=== PATIENT | male | born 1975 | race Caucasian/White ===

== ENCOUNTER 2017-01-11 05:03 | Day surgery (SDC) | payer BC, OTHER ==
[2017-01-11] MEDS ORDERED: Dextrose 5%-Lactated Ringers 1,000 ML IV SCH (06:30)
[2017-01-11] MEDS ORDERED: Propofol 200 MG/20 ML SDV ONE (06:50)
[2017-01-11] MEDS ORDERED: Midazolam 1 MG/ML 2 ML SDV ONE (06:50)
[2017-01-11] MEDS ORDERED: fentaNYL 100 MCG/2 ML SDV ONE (06:50)
[2017-01-11] MEDS ORDERED: Glycopyrrolate 0.2 MG/ML 2 ML SYRINGE IVPUSH ONE (07:15)
[2017-01-11 08:36] VITALS: BP 109/82
--- NOTE | 2017-01-12 09:51 | OR ---
DATE OF PROCEDURE: 01/11/2017 PREOPERATIVE DIAGNOSIS: Dyspepsia. POSTOPERATIVE DIAGNOSES: 1. Mild distal esophagitis with possible Betancur's esophagus. 2. Mild antral gastritis. PROCEDURE: Esophagogastroduodenoscopy with: 1. Antral biopsies for CLOtest. 2. Biopsies of the esophagogastric junction for histologic evaluation. ANESTHESIA: IV sedation. INDICATION FOR PROCEDURE: This is a 41-year-old male presenting with some ongoing dyspepsia, complaining of some discomfort and some nausea referable to the epigastric area. He is presently on omeprazole 40 mg a day and has been so for about the last month and states his discomfort and symptoms have improved while on that medication. Plan is to proceed with an upper GI endoscopy with biopsies as indicated. Potential risks including bleeding and perforation were discussed and the patient wishes to proceed. DETAILS OF PROCEDURE: The patient was taken to the operating room and placed in the left lateral decubitus position. IV sedation was administered, after which the upper GI endoscope was passed orally through the length of the esophagus and into stomach with retroflexion view of the fundus, and thereafter through the pyloric channel and into the proximal duodenum. Findings included a normal appearing hypopharynx, larynx, upper esophageal sphincter, and esophageal body. At the EG junction, there was a very small hiatal hernia. There was some upward extension of the gastroesophageal junction, mucosal lining above the gastric fold and two tiny islands of columnar type mucosa separate from the main gastric mucosa. This is being suggestive of some possible Betancur's esophagus. There is no stricturing or plaquing, and the amount of inflammation present was minimal. Within the stomach there is no retained food or fluid. The patient did have some very mild redness in the antrum; otherwise, the pyloric channel and proximal duodenum were unremarkable. At this point, biopsies were taken from the antrum and sent for CLOtest for H. pylori. Multiple biopsies were then obtained from esophagogastric junction, sent for histologic evaluation. Minimal bleeding of the biopsy sites was seen and the procedure concluded. The patient was taken to the recovery room in satisfactory condition. Plan will be to have the patient continue the present medications. If the CLOtest is positive, we would get him set up with a 2-week course of some antibiotics for the H. pylori, and if Betancur's esophagus is identified, he should be enrolled in a 2-year follow- up endoscopic regimen. Otherwise, continue the present medications, i.e., Prilosec 40 mg a day, and see Dr. Campbell in the clinic in about two weeks. Ector Park MD /[id number]
== END 2017-01-11 08:49 | disposition home or self-care (01) ==
LOC: JP.SDS 05:03
PROVIDERS: ATTEND Surgery
DX: K31.89 Other diseases of stomach and duodenum (principal); K44.9 Diaphragmatic hernia without obstruction or gangrene; F32.9 Major depressive disorder, single episode, unspecified; Z88.8 Allergy status to other drugs, medicaments and biological substances
CPT/HCPCS: 43239; 87081; J2250; J2704; J3010; J7042

== ENCOUNTER 2017-01-11 20:39 | Emergency (ER) | payer BC ==
[2017-01-11 21:29] VITALS: BP 161/99
[2017-01-11] MEDS ORDERED: Sodium Chloride 0.9% 1,000 ML IV SCH (22:15)
--- NOTE | 2017-01-11 22:16 | EDM.PDOC ---
ED HPI GENERAL MEDICAL PROBLEM - General Chief Complaint: Abdominal Pain Stated Complaint: STOMACH PAIN Time Seen by Provider: 01/11/17 21:52 Source of Information: Reports: Patient, Family () History Limitations: Reports: No Limitations - History of Present Illness INITIAL COMMENTS - FREE TEXT/NARRATIVE: abdominal pain; this is a 41 year old male presents to ER for evaluation of abdominal pain. reports had EGD this morning by Dr. Park, told was gastritis, he went home this afternoon, had pain in abdomen all afternoon. felt like an intense burning pain. tried to eat rice, which made the pain worse. Water caused pain, had a bowel movement which didn't change the pain. had a acid, bile like taste in mouth. decided to come to ER, then vomited and pain is almost gone prior to arrival in ER. Onset: Gradual Location: Reports: Abdomen Quality: Reports: Ache, Burning Severity: Mild Improves with: Reports: None Worsens with: Reports: Eating Context: Reports: Other (abdominal pain) Associated Symptoms: Reports: Loss of Appetite, Nausea/Vomiting abdominal Pain Score (Numeric/FACES): 7 - Related Data Allergies Allergy/AdvReac Type Severity Reaction Status Date / Time pseudoephedrine Allergy Other Verified 01/12/17 10:16 [From Actifed] triprolidine [From Actifed] Allergy Other Verified 01/12/17 10:16 Home Meds: Home Meds RX: Omeprazole 40 mg PO DAILY 01/09/17 [History] RX: Sertraline [Zoloft] 150 mg PO DAILY 01/09/17 [History] Ascorbate Calcium [Vitamin C] 500 mg PO DAILY 01/11/17 [History] Multivitamin [Men's Multi-Vitamin] 1 tab PO DAILY 01/11/17 [History] Past Medical History HEENT History: Reports: Impaired Vision, Otitis Media, Sinusitis Gastrointestinal History: Reports: GERD Genitourinary History: Reports: Renal Calculus Musculoskeletal History: Reports: Arthritis, Back Pain, Chronic, Fracture, Other (See Below) Other Musculoskeletal History: history of broken vertebrate in neck Psychiatric History: Reports: Anxiety - Infectious Disease History Infectious Disease History: Reports: Chicken Pox - Past Surgical History HEENT Surgical History: Reports: Adenoidectomy, Tonsillectomy GI Surgical History: Reports: None, EGD, Other (See Below) Other GI Surgeries/Procedures: EGD 01/11/17 Musculoskeletal Surgical History: Reports: None Social & Family History - Family History Family Medical History: Noncontributory - Tobacco Use Smoking Status *Q: Never Smoker Years of Tobacco use: 20 Packs/Tins Daily: 0.1 Used Tobacco, but Quit: No Second Hand Smoke Exposure: No - Caffeine Use Caffeine Use: Reports: Coffee, Soda - Alcohol Use Days Per Week of Alcohol Use: 4 Number of Drinks Per Day: 2 Total Drinks Per Week: 8 - Recreational Drug Use Recreational Drug Use: No - Living Situation & Occupation Living situation: Reports: ED ROS GENERAL - Review of Systems Review Of Systems: See Below Constitutional: Reports: Decreased Appetite HEENT: Reports: No Symptoms Respiratory: Reports: No Symptoms Cardiovascular: Reports: No Symptoms Endocrine: Reports: No Symptoms GI/Abdominal: Reports: Abdominal Pain, Decreased Appetite, Vomiting, Other (EGD today) : Reports: No Symptoms Musculoskeletal: Reports: No Symptoms Skin: Reports: No Symptoms Neurological: Reports: No Symptoms Psychiatric: Reports: No Symptoms Hematologic/Lymphatic: Reports: No Symptoms Immunologic: Reports: No Symptoms ED EXAM, GI/ABD - Physical Exam Exam: See Below Exam Limited By: No Limitations General Appearance: Alert, WD/WN, No Apparent Distress Eyes: Bilateral: Normal Appearance, EOMI Ears: Normal External Exam, Normal Canal, Hearing Grossly Normal, Normal TMs Nose: Normal Inspection, Normal Mucosa, No Blood Throat/Mouth: Normal Inspection, Normal Lips, Normal Teeth, Normal Gums, Normal Oropharynx, Normal Voice, No Airway Compromise Head: Atraumatic, Normocephalic Neck: Normal Inspection, Supple, Non-Tender, Full Range of Motion Respiratory/Chest: No Respiratory Distress, Lungs Clear, Normal Breath Sounds, No Accessory Muscle Use, Chest Non-Tender Cardiovascular: Normal Peripheral Pulses, Regular Rate, Rhythm, No Edema, No Gallop, No JVD, No Murmur, No Rub GI/Abdominal: Normal Bowel Sounds, Soft, No Organomegaly, No Distention, No Abnormal Bruit, No Mass, Tenderness (epigastric and right upper quadrant) (Male) Exam: Deferred Rectal (Males) Exam: Deferred Extremities: Normal Inspection, Normal Range of Motion, Non-Tender, No Pedal Edema, Normal Capillary Refill Neurological: Alert, Oriented, Normal Cognition, Normal Gait, No Motor/Sensory Deficits Psychiatric: Normal Affect, Normal Mood Skin Exam: Warm, Dry, Intact, Normal Color, No Rash Lymphatic: No Adenopathy Course - Vital Signs Last Recorded V/S: Last Vital Signs Temp 36.4 C 01/11/17 21:28 Pulse 67 01/11/17 21:28 Resp 18 01/11/17 21:28 BP 161/99 H 01/11/17 21:28 Pulse Ox 98 01/11/17 21:28 - Orders/Labs/Meds Labs: Laboratory Tests 01/11/17 01/11/17 01/11/17 Range/Units 22:17 22:17 23:02 WBC 13.8 H (4.5-11.0) K/uL RBC 5.42 (4.30-5.90) M/uL Hgb 15.9 H (12.0-15.0) g/dL Hct 44.1 (40.0-54.0) % MCV 81 (80-98) fL MCH 29 (27-31) pg MCHC 36 (32-36) % Plt Count 259 (150-400) K/uL Neut % (Auto) 74 H (36-66) % Lymph % (Auto) 17 L (24-44) % [place] % (Auto) 8 H (2-6) % Eos % (Auto) 1 L (2-4) % Baso % (Auto) 0 (0-1) % Sodium 139 L (140-148) mmol/L Potassium 3.6 (3.6-5.2) mmol/L Chloride 101 (100-108) mmol/L Carbon Dioxide 31 (21-32) mmol/L Anion Gap 10.6 (5.0-14.0) mmol/L BUN 11 (7-18) mg/dL Creatinine 1.0 (0.8-1.3) mg/dL Est Cr Clr Drug Dosing 94.05 mL/min Estimated GFR (MDRD) > 60 (>60) Glucose 153 H (74-106) mg/dL Calcium 9.2 (8.5-10.1) mg/dL Total Bilirubin 0.8 (0.2-1.0) mg/dL AST 20 (15-37) U/L ALT 29 (12-78) U/L Alkaline Phosphatase 75 (46-116) U/L Total Protein 7.4 (6.4-8.2) g/dL Albumin 3.6 (3.4-5.0) g/dL Globulin 3.8 H (2.3-3.5) g/dL Albumin/Globulin Ratio 1.0 L (1.2-2.2) Amylase 45 (25-115) U/L Lipase 90 (73-393) U/L Urine Color Yellow Urine Appearance Cloudy Urine pH 9.0 H (4.5-8.0) Ur Specific [place] 1.020 (1.008-1.030) Urine Protein Negative (NEGATIVE) mg/dL Urine Glucose (UA) Normal (NEGATIVE) mg/dL Urine Ketones Negative (NEGATIVE) mg/dL Urine Occult Blood Negative (NEGATIVE) Urine Nitrite Negative (NEGAITVE) Urine Bilirubin Negative (NEGATIVE) Urine Urobilinogen Normal (NORMAL) mg/dL Ur Leukocyte Esterase Negative (NEGATIVE) Urine RBC 0-5 (0-5) Urine WBC 0-5 (0-5) Ur Epithelial Cells Rare Amorphous Sediment Many Urine Bacteria Rare Urine Mucus Few Meds: Medications Discontinued Medications Generic Name Dose Route Start Last Admin Trade Name Emmanuelle PRN Reason Stop Dose Admin Hydromorphone HCl 1 mg 01/11/17 23:44 01/11/17 23:53 Dilaudid IVPUSH 01/11/17 23:45 1 mg ONETIME ONE Administration Sodium Chloride 1,000 mls @ 500 mls/hr 01/11/17 22:15 01/11/17 22:54 Normal Saline IV 500 mls/hr ASDIRECTED RUSTY Administration Ondansetron HCl 4 mg 01/11/17 23:44 01/11/17 23:51 Zofran IVPUSH 01/11/17 23:45 4 mg ONETIME ONE Administration Pantoprazole Sodium 40 mg 01/11/17 22:25 01/11/17 22:55 Protonix Iv IVPUSH 01/11/17 22:26 40 mg ONETIME ONE Administration - Re-Assessments/Exams Free Text/Narrative Re-Assessment/Exam: 01/11/17 22:21 labs; CBC, CMP, AMYLASE, LIPASE XRAY; ABDOMEN PELVIS WITHOUT CONTRAST MEDS; IV NORMAL SALINE 1 LITER 01/11/17 23:[address]; acute Yaritza consulted with Dr. De Oliveira -will see in clinic in am -come to clinic at 0900 -medicate for pain -keep NPO after midnight -pt may have surgical procedure on 01/12/17 discussed with Mr. and Mrs. Dahl agree with plan of care. given copy of CT abdomen-pelvis report 01/11/17 23:45 Mr. Dahl drank juice, water and ice chips, now in acute pain plan; dilaudid 1mg IV, Zofran 4mg IV. Departure - Departure Time of Disposition: 00:05 Disposition: Home, Self-Care 01 Condition: Good Clinical Impression: Cholecystitis - Discharge Information Instructions: Cholecystitis, [id number] Referrals: Darwin Campbell MD [Primary Care Provider] - Forms: ED Department Discharge Care Plan Goals: 01/11/17 23:[address]; acute Yaritza consulted with Dr. De Oliveira -will see in clinic in am -come to clinic at 0900 -medicate for pain -keep NPO after midnight -pt may have surgical procedure on 01/12/17 discussed with and Mrs. Dahl agree with plan of care. given copy of CT abdomen-pelvis report - Problem List & Annotations (1) Cholecystitis SNOMED Code(s): 44789226 Code(s): K81.9 - CHOLECYSTITIS, UNSPECIFIED Status: Acute Priority: High - Problem List Review Problem List Initiated/Reviewed/Updated: Yes - Assessment/Plan Plan: 01/11/17 23:[address]; acute Yaritza consulted with Dr. De Oliveira -will see in clinic in am -come to clinic at 0900 -medicate for pain -keep NPO after midnight, nothing to eat or drink after midnight, may take medicine with sip of water. no aspirin or motrin or aleve products. -pt may have surgical procedure on 01/12/17 discussed with Mr. and Mrs. Dahl agree with plan of care. given copy of CT abdomen-pelvis report
[2017-01-11] MEDS ORDERED: Pantoprazole 40 MG Vial IVPUSH ONE (22:25)
[2017-01-11] MEDS ORDERED: HYDROmorphone 1 MG/ML Syringe IVPUSH ONE (23:44)
[2017-01-11] MEDS ORDERED: Ondansetron 4 MG/2 ML SDV IVPUSH ONE (23:44)
== END 2017-01-12 00:50 | disposition home or self-care (01) ==
LOC: JP.ED 20:39
PROC: 0DB48ZX Excision of Esophagogastric Junction, Via Natural or Artificial Opening Endoscopic, Diagnostic (ICD-10-PCS; principal; 2017-01-11)
PROC: 0DB68ZX Excision of Stomach, Via Natural or Artificial Opening Endoscopic, Diagnostic (ICD-10-PCS; 2017-01-11)
DX: K81.9 Cholecystitis, unspecified (principal); K21.9 Gastro-esophageal reflux disease without esophagitis; F41.9 Anxiety disorder, unspecified; Z87.442 Personal history of urinary calculi; Z98.890 Other specified postprocedural states; Z79.899 Other long term (current) drug therapy; Z88.8 Allergy status to other drugs, medicaments and biological substances; K31.89 Other diseases of stomach and duodenum; K44.9 Diaphragmatic hernia without obstruction or gangrene; F32.9 Major depressive disorder, single episode, unspecified
CPT/HCPCS: 36415; 43239; 74176; 80053; 81001; 82150; 83690; 85025; 87081; 88305; 88312; 96361; 96374; 96375; 99285; C9113; J1170; J2250; J2405; J2704; J3010; J7040; J7042

== ENCOUNTER 2017-01-12 09:47 | Day surgery (SDC) | payer BC ==
[2017-01-12] MEDS ORDERED: Neostigmine Methylsulfate 1 MG/ML 5 ML Syringe ONE (10:16)
[2017-01-12] MEDS ORDERED: fentaNYL 250 MCG/5 ML SDV ONE (10:16)
[2017-01-12] MEDS ORDERED: Succinylcholine/Normal Saline 200 MG/10 ML Syringe ONE (10:16)
[2017-01-12] MEDS ORDERED: Dexamethasone 4 MG/ML SDV ONE (10:16)
[2017-01-12] MEDS ORDERED: Rocuronium 50 MG/5 ML Vial ONE (10:16)
[2017-01-12] MEDS ORDERED: Ondansetron 4 MG/2 ML SDV ONE (10:16)
[2017-01-12] MEDS ORDERED: Propofol 200 MG/20 ML SDV ONE (10:16)
[2017-01-12] MEDS ORDERED: Lidocaine 1% with EPINEPHrine 1:100,000 50 ML MDV ONE (10:28)
[2017-01-12] MEDS ORDERED: Bupivacaine 0.5% 50 ML MDV ONE (10:28)
[2017-01-12] MEDS ORDERED: Ketorolac 60 MG/2 ML SDV ONE ×2 (11:09→11:43)
[2017-01-12] MEDS ORDERED: ceFAZolin 2 GM in Sodium Chloride 0.9% 50 ML IV ONE (11:30)
[2017-01-12] MEDS ORDERED: metroNIDAZOLE/Normal Saline 500 MG in Premix Bag 1 BAG IV ONE (11:30)
[2017-01-12] MEDS ORDERED: Zolpidem 5 MG Tab PO PRN (11:42)
[2017-01-12] MEDS ORDERED: diphenhydrAMINE 50 MG/ML SDV IVPUSH PRN (11:42)
[2017-01-12] MEDS ORDERED: Promethazine 25 MG/ML SDV IM PRN (11:42)
[2017-01-12] MEDS ORDERED: Benzocaine/Cetylpyridinium/Menthol Lozenge MUCMEM PRN (11:42)
[2017-01-12] MEDS: Sodium Chloride 0.9% 1,000 ML IV SCH ×2 (11:50→18:37)
[2017-01-12] MEDS: Acetaminophen/HYDROcodone 325-10 MG Tab PO PRN (15:26)
[2017-01-13] MEDS: Acetaminophen/HYDROcodone 325-10 MG Tab PO PRN ×3 (00:01→11:05)
[2017-01-13] MEDS ORDERED: Lidocaine 2% Jelly 10 ML Urojet MUCMEM ONE (01:00)
[2017-01-13 06:24] VITALS: BP 111/68
--- NOTE | 2017-01-13 12:04 | PN ---
DATE OF SERVICE: 01/13/2017 SUBJECTIVE: The patient is doing very well today. Pain is well controlled. No nausea, vomiting, shortness of breath, or chest pain. He is passing gas. He has a low-grade fever. OBJECTIVE: VITAL SIGNS: 118/68, pulse 78, respirations 18, 94% on room air. CARDIOVASCULAR: Regular rhythm and rate. RESPIRATORY: Lungs clear to auscultation bilaterally. ABDOMEN: Bowel sounds positive. Incisions healing well. LABORATORY DATA: Normal hemoglobin. Total bilirubin of 1.1. ASSESSMENT AND PLAN: Status post laparoscopic cholecystectomy. PLAN: The patient will be discharged today. Please see discharge summary for further details. Abram De Oliveira MD /[id number]
--- NOTE | 2017-01-13 12:10 | DISCH ---
DISCHARGE DIAGNOSIS: Status post laparoscopic cholecystectomy. HOSPITAL COURSE: This is a pleasant 41-year-old male who developed right upper quadrant abdominal pain requiring laparoscopic cholecystectomy. On postop day #1, the patient's pain was well controlled. He was passing gas. He has no nausea, vomiting, shortness of breath, or chest pain. He had a low-grade fever, which was consistent with atelectasis. FOLLOWUP: With Surgery in 7 to 14 days. ACTIVITY: No lifting greater than 30 pounds x30 days. DISCHARGE MEDICATIONS: Please see MAR, but includes [place] for pain. COMPLICATIONS DURING THIS HOSPITALIZATION: None. ADDITIONAL CONSULTATIONS: None.
--- NOTE | 2017-01-15 07:56 | OR ---
DATE OF PROCEDURE: 01/12/2017 PROCEDURE: Laparoscopic cholecystectomy. PREOPERATIVE DIAGNOSIS: Acute cholecystitis. POSTOPERATIVE DIAGNOSIS: Acute cholecystitis. COMPLICATIONS: None. SENIOR UI UX DEVELOPER: None. ANESTHESIA: General/local. RISK: Risks, benefits, alternatives, limitations including, but not limited to infection, bleeding, and perforation of abdominal structures along with common bile duct injury, cystic duct leaks, and other risks were explained to the patient and he wished to proceed. PROCEDURE IN DETAIL: The patient was placed in supine position. A supraumbilical curvilinear incision was made. A Veress needle was used to enter the abdomen without abnormality. A drop test was performed without abnormality. After abdominal insufflation, an Optiview trocar was inserted and no abnormalities were noted during insertion. A photo was taken of the insertion site. A 10 and 2 additional 5-mm ports were also entered under direct visualization. The gallbladder was retracted cephalad. The infundibulum was retracted inferolaterally. A "clear view" of the gallbladder was obtained with a single pulsatile structure in the gallbladder and a single nonpulsatile structure in the gallbladder. The duct and artery were clipped and transected. The remaining 1/3rd of the gallbladder was removed off the gallbladder bed using electrocautery. This was delivered with a bag. The bed was inspected without abnormality. The wounds were irrigated, and then closed with 3-0 Vicryl and 4-0 Vicryl in interrupted running fashion and Dermabond was applied. The patient tolerated the procedure well. Abram De Oliveira MD /[id number]
== END 2017-01-13 11:19 | disposition home or self-care (01) ==
LOC: JP.SDS 09:47 → JP.MS 11:42 → JP.SDS 01-13 11:19
PROVIDERS: ATTEND Surgery
DX: K80.12 Calculus of gallbladder with acute and chronic cholecystitis without obstruction (principal); K21.9 Gastro-esophageal reflux disease without esophagitis; F41.9 Anxiety disorder, unspecified; Z87.442 Personal history of urinary calculi; Z88.8 Allergy status to other drugs, medicaments and biological substances
CPT/HCPCS: 36415; 47562; 80053; 85025; A9270; J0690; J1100; J1885; J2405; J2704; J3010; J7040; J7050; 88304

== ENCOUNTER 2017-06-03 08:11 | Emergency (ER) | payer BC ==
[2017-06-03 08:30] VITALS: BP 159/95
--- NOTE | 2017-06-03 08:40 | EDM.PDOC ---
ED HPI GENERAL MEDICAL PROBLEM - General Stated Complaint: FELL OUT OF TREE HIT NOSE Time Seen by Provider: 06/03/17 08:25 Source of Information: Reports: Patient, RN Notes Reviewed History Limitations: Reports: No Limitations - History of Present Illness INITIAL COMMENTS - FREE TEXT/NARRATIVE: 42-year-old gentleman presents emergency department day following a fall out of his deer stand, he estimates this happened about one hour prior he was climbing into stand the latter broke he fell to the ground estimated height about 10 feet he landed face first did have a bloody nose he is complaining of nose and facial pain he is not sure if he got knocked out he does not remember all the details denies any neck pain, past medical history includes Zoloft for anxiety surgery of gallbladder last meal was last night - Related Data Allergies Allergy/AdvReac Type Severity Reaction Status Date / Time pseudoephedrine Allergy Other Verified 01/12/17 10:16 [From Actifed] triprolidine [From Actifed] Allergy Other Verified 01/12/17 10:16 Home Meds: Home Meds Omeprazole 40 mg PO DAILY 01/09/17 [History] Sertraline [Zoloft] 150 mg PO DAILY 01/09/17 [History] Ascorbate Calcium [Vitamin C] 500 mg PO DAILY 01/11/17 [History] Multivitamin [Men's Multi-Vitamin] 1 tab PO DAILY 01/11/17 [History] Past Medical History HEENT History: Reports: Impaired Vision, Otitis Media, Sinusitis Gastrointestinal History: Reports: Cholelithiasis, GERD Genitourinary History: Reports: Renal Calculus Musculoskeletal History: Reports: Arthritis, Back Pain, Chronic, Fracture, Other (See Below) Other Musculoskeletal History: history of broken vertebrate in neck Psychiatric History: Reports: Anxiety Endocrine/Metabolic History: Reports: Obesity/BMI 30+ - Infectious Disease History Infectious Disease History: Reports: Chicken Pox - Past Surgical History HEENT Surgical History: Reports: Adenoidectomy, Tonsillectomy GI Surgical History: Reports: None, EGD, Other (See Below) Other GI Surgeries/Procedures: EGD 01/11/17 Musculoskeletal Surgical History: Reports: None Social & Family History - Family History Family Medical History: Noncontributory - Tobacco Use Smoking Status *Q: Never Smoker Years of Tobacco use: 20 Packs/Tins Daily: 0.1 Used Tobacco, but Quit: No Second Hand Smoke Exposure: No - Caffeine Use Caffeine Use: Reports: Coffee, Soda - Alcohol Use Days Per Week of Alcohol Use: 4 Number of Drinks Per Day: 2 Total Drinks Per Week: 8 - Recreational Drug Use Recreational Drug Use: No - Living Situation & Occupation Living situation: Reports: ED ROS GENERAL - Review of Systems Review Of Systems: See Below Constitutional: Reports: No Symptoms HEENT: Reports: Nosebleed Respiratory: Reports: No Symptoms Cardiovascular: Reports: No Symptoms GI/Abdominal: Reports: No Symptoms : Reports: No Symptoms Musculoskeletal: Reports: Other (facial pain). Denies: Neck Pain Skin: Reports: No Symptoms Neurological: Reports: No Symptoms ED EXAM, UPPER BACK/NECK PAIN - Physical Exam Exam: See Below Text/Narrative:: Primary survey, GCS of 15 airway is open patent clear lungs are clear to auscultation bilaterally cardiovascular demonstrates regular rate and rhythm S1- S2 Secondary survey General: Male, not in a distress, GCS of 15, alert and oriented x3 HEENT: head is atraumatic normocephalic, eyes pupils equal round reactive to light, sclera clear no conjunctivitis appreciated, extraocular eye movements intact . Ears tympanic membranes clear and howe landmarks and light reflex are present bilaterally canals are clear. Nose edema is appreciated across the bridge of the nose both nares are plugged with dried blood. Mouth mucosa is moist and pink no erythema or exudate noted in soft palate, tongue is midline uvula is midline, dentition is intact. Neck: Supple no thyromegaly no tracheal deviation. There is no tenderness to palpation midline or paraspinally full range of motion the neck Nodes: Cervical nodes subclavicular nodes nontender no palpable lymphadenopathy noted. Lungs: clear to auscultation bilaterally with symmetrical respirations, no adventitious noise appreciated. CV: Regular rate and rhythm S1 and S2 appreciated no murmurs rubs or gallops noted. Abdomen: Soft, nontender, no palpable masses or organomegaly appreciated, no distention no guarding bowel sounds are present, Neuro: Cranial nerves II through XII grossly intact Skin:Superficial bruising noted on left guadarrama Extremities:No tenderness at the wrist no tenderness elbows tenderness shoulders bilaterally pelvic rock's is negative no tenderness at the hips no tenderness at the knees no tenderness at the ankles bilaterally pedal pulse is + 2 Course - Vital Signs Last Recorded V/S: Last Vital Signs Temp 97.2 F 06/03/17 08:28 Pulse 77 06/03/17 08:28 Resp 16 06/03/17 08:28 BP 159/95 H 06/03/17 08:28 Pulse Ox 99 06/03/17 08:28 - Orders/Labs/Meds Orders: Active Orders 24 hr Category Date Time Status Vaccines to be Administered [RC] PER UNIT ROUTINE Care 06/03/17 08:49 Active Cervical Spine wo Cont [CT] Stat Exams 06/03/17 08:26 Taken Head wo Cont [CT] Stat Exams 06/03/17 08:26 Taken Max Facial Sinus wo Cont [CT] Stat Exams 06/03/17 08:26 Taken Meds: Medications Discontinued Medications Generic Name Dose Route Start Last Admin Trade Name Freq PRN Reason Stop Dose Admin Diphtheria/Tetanus/Acell Pertussis 0.5 ml 06/03/17 08:49 06/03/17 09:16 Adacel IM 06/03/17 08:50 0.5 ml .ONCE ONE Administration Departure - Departure Time of Disposition: 10:04 Disposition: Home, Self-Care 01 Condition: Good Clinical Impression: Nasal bone fracture Qualifiers: Encounter type: initial encounter Fracture type: closed Qualified Code(s): S02.2XXA - Fracture of nasal bones, initial encounter for closed fracture - Discharge Information Referrals: Darwin Campbell MD [Primary Care Provider] - Additional Instructions: Use Tylenol or Motrin as needed for pain control, Please followup with your primary care provider in 3-5 days if not better, please call return to the emergency department with worsening of symptoms. - My Orders Last 24 Hours: My Active Orders 06/03/17 08:26 Cervical Spine wo Cont [CT] Stat Head wo Cont [CT] Stat Max Facial Sinus wo Cont [CT] Stat 06/03/17 08:49 Vaccines to be Administered [RC] PER UNIT ROUTINE - Assessment/Plan Last 24 Hours: My Active Orders 06/03/17 08:26 Cervical Spine wo Cont [CT] Stat Head wo Cont [CT] Stat Max Facial Sinus wo Cont [CT] Stat 06/03/17 08:49 Vaccines to be Administered [RC] PER UNIT ROUTINE Plan: Assessment Acuity = acute Site and laterality = nondisplaced nasal bone fracture Etiology = secondary from a fall from height Manifestations = none Location of injury = Home Lab values = CT scan head neck facial bones describes the fracture above Plan I did review CT scans with him he is to follow-up with primary care in 3-5 days for reevaluation, use ibuprofen and Tylenol as needed Patient was in agreement with the plan all questions were answered, they were instructed to return to the emergency department or call for worsening symptoms. This note was dictated using [employer] voice recognition software please call with any questions.
[2017-06-03] MEDS ORDERED: Diphtheria,Pertussis(Acell),Tetanus Vaccine 0.5 ML SDV IM ONE (08:49)
== END 2017-06-03 10:18 | disposition home or self-care (01) ==
LOC: JP.ED 08:11
DX: S02.2XXA Fracture of nasal bones, initial encounter for closed fracture (principal); Z88.8 Allergy status to other drugs, medicaments and biological substances; Z79.899 Other long term (current) drug therapy; W17.89XA Other fall from one level to another, initial encounter; Z23 Encounter for immunization
CPT/HCPCS: 70450; 70486; 72125; 90471; 90715; 99283-25

== ENCOUNTER 2021-10-11 07:25 | Day surgery (SDC) | payer BC ==
[~2021-10-11 07:25] MED LIST: Midazolam 1 MG/ML 2 ML SDV ONE; Propofol 200 MG/20 ML SDV ONE; fentaNYL 100 MCG/2 ML SDV ONE
[2021-10-11] MEDS ORDERED: Dextrose 5%-Lactated Ringers 1,000 ML IV SCH (08:00)
[2021-10-11 10:05] VITALS: BP 103/68; PULSE 61
== END 2021-10-11 10:10 | disposition home or self-care (01) ==
LOC: JP.SDS 07:25
PROVIDERS: ATTEND Family Medicine
DX: Z12.11 Encounter for screening for malignant neoplasm of colon (principal); D12.3 Benign neoplasm of transverse colon; I10 Essential (primary) hypertension; E66.9 Obesity, unspecified; Z68.34 Body mass index [BMI] 34.0-34.9, adult; Z88.4 Allergy status to anesthetic agent; Z90.49 Acquired absence of other specified parts of digestive tract; Z80.0 Family history of malignant neoplasm of digestive organs; Z86.010 Personal history of colon polyps
CPT/HCPCS: 88305; J2250; J2704; J3010; J7121